=== PATIENT | male | born 1975 | race Caucasian/White ===

== ENCOUNTER → 2018-10-19 | Day surgery (SDC) | payer BC, OTHER ==
[~2018-10-19] MED LIST: FENTANYL PF 100MCG/2ML VIAL IV ONE; LIDOCAINE 2% MDV (20MG/ML) 20ML VIAL IV ONE; PROPOFOL 10 MG/ML VIAL IV ONE
--- NOTE | 2018-10-22 13:00 | Operative Note ---
SURGEON: Con Ibarra MD OPERATION: ESOPHAGOGASTRODUODENOSCOPY. INDICATIONS: This is a 42-year-old male with 2-year history of gastroesophageal reflux disease. Symptoms were controlled on ranitidine. He presented for esophagogastroduodenoscopy. POSTOPERATIVE DIAGNOSES: 1. LA class B esophagitis. 2. Normal stomach and duodenum. ANESTHESIA: Sedation is per Anesthesia. Pulse oximetry was monitored throughout the procedure to maintain O2 saturation of 90% or greater. Supplemental oxygen was administered via nasal cannula. Cardiac and vital signs were monitored throughout the duration of the procedure, and they were stable. The procedure of esophagogastroduodenoscopy and risks and benefits of the procedure, including the risk of bleeding and perforation, among others, were explained to the patient who voiced understanding and agreed to have the procedure done. Physical examination was performed, and the patient was found stable for sedation. PROCEDURE: The patient was placed in the left lateral position. Sedation was initiated. A plastic bite block was inserted into the oral cavity. The Olympus [id number] gastroscope was introduced into the oral cavity and advanced to the proximal esophagus without difficulty. The esophageal mucosa was carefully examined upon introduction of the gastroscope. The proximal and mid esophageal mucosa appeared normal. In the distal esophagus, there was LA class B esophagitis with no strictures noted. The gastroscope was then advanced into the stomach, and surveillance of the stomach revealed normal stomach and duodenum. The gastroscope was then withdrawn into the stomach, and retroflexion was performed. There were no other lesions noted The gastroscope was then straightened and withdrawn while carefully examining the gastric and esophageal mucosa. No other lesions noted. Multiple esophageal biopsies were obtained. The patient remained with stable vital signs and was transferred to the recovery room. RECOMMENDATIONS: 1. The patient is to continue on his ranitidine more consistently. 2. The patient is to have a repeat esophagogastroduodenoscopy to document healing in about 3 months. Thank you for allowing me to participate in the care of your patient. CARL
== END | disposition home or self-care (01) ==
LOC: HOP 11:15
PROVIDERS: ATTEND Internal Medicine Gastroenterology
DX: R12 Heartburn (principal); K21.0 Gastro-esophageal reflux disease with esophagitis